=== PATIENT | female | born 1985 | race Caucasian/White ===

== ENCOUNTER → 2017-07-22 | Outpatient (CLI) | payer BC ==
[~2017-07-22] MED LIST: COLA50CA3 PO; LORTTAB2 PO; LORTTAB5 PO; Metamucil PO; Prenatal Vitamin PO
--- NOTE | 2017-07-23 08:31 | REP ---
MRI LUMBAR SPINE WITHOUT CONTRAST: HISTORY: Back pain. Decreased signal intensity on T2-weighted images is present in the L5-S1 intervertebral disc. This represents disc degeneration. There is no disc bulge or herniation at the L1-2 through L4-5 levels. The nerves exit the neural foramina without compression. A diffuse disc bulge is present at the L5-S1 level. There is minimal compression of the thecal sac. There is hypertrophy of the posterior articulating facets. A small right intraforaminal disc protrusion is present. This abuts the right L5 nerve in the neural foramen. The left L5 nerve exits the neural foramen without compression. The conus medullaris is normal in appearance terminating at the level of the L2 vertebral body. Normal signal intensity is present in the lumbar vertebral bodies. IMPRESSION: Diffuse disc bulge at the L5-S1 level with minimal thecal sac compression. A small right intraforaminal disc protrusion is present. This abuts the right L5 nerve in the neural foramen. Signed by Simon Gusman MD 07/23/2017 08:33 A
== END ==
LOC: M RAD 16:01
PROVIDERS: ATTEND Family Medicine
DX: M54.5 Low back pain (principal)